=== PATIENT | male | born 1990 | race African-American/Black ===

== ENCOUNTER → 2017-09-15 | Outpatient (CLI) | payer OTHER ==
[2017-09-15 16:11] LABS: ANION GAP 16.3 mmol/L (8-16); BLOOD UREA NITROGEN 6 mg/dL (7-26); BUN/CREATININE RATIO 10 (6-25); CALCIUM 9.4 mg/dL (8.4-10.2); CARBON DIOXIDE 22 mmol/L (22-29); CHLORIDE 102 mmol/L (98-107); CREATININE, SERUM 0.58 mg/dL (0.72-1.25); EST GLOMERULAR FILTRATION RATE > 60 ML/MIN (60-); POTASSIUM 4.3 mmol/L (3.5-5.1); SODIUM 136 mmol/L (136-145)
[2017-09-15 16:13] LABS: GLUCOSE 52 mg/dL (74-118)
[2017-09-15 16:16] LABS: BASOPHILS % 0.5 % (0.0-1.0); EOSINOPHILS # (AUTO) 0.2 (0.0-0.4); EOSINOPHILS % 3.6 % (0.0-6.0); HEMOGLOBIN 9.2 g/dL (14.0-18.0); LYMPHOCYTES # (AUTO) 2.3 (1.0-3.2); LYMPHOCYTES % 41.9 % (18.0-39.1); MEAN CORPUSCULAR HEMOGLOBIN 22.5 pg (28-32); MEAN CORPUSCULAR HGB CONC 31.7 g/dL (31-35); MEAN CORPUSCULAR VOLUME 70.9 fL (81-99); MONOCYTES # (AUTO) 0.7 (0.2-0.8); MONOCYTES % 12.2 % (4.4-11.3); NEUTROPHILS # (AUTO) 2.3 (2.1-6.9); NEUTROPHILS % 41.4 % (38.7-80.0); PLATELET COUNT 491 x10e3/uL (140-360); RED BLOOD COUNT 4.09 x10e6/uL (4.3-5.7)
== END ==
LOC: NPA 12:40
DX: Z02.89 Encounter for other administrative examinations (principal)
CPT/HCPCS: 36415; 80048; 85025

== ENCOUNTER 2017-10-05 20:02 | Inpatient (IN) | payer OTHER ==
[~2017-10-05] VITALS: Ht 162.6 cm; Wt 48.5 kg
[2017-10-05] MEDS ORDERED: SODIUM CHLORIDE 0.9% 1000ML 1,000 ML IV STA (20:11)
[2017-10-05] MEDS ORDERED: PANTOPRAZOLE 40 MG 10ML VIAL IV STA (20:11)
[2017-10-05 20:25] LABS: BASOPHILS # (AUTO) 0.1 (0.0-0.1); BASOPHILS % 0.3 % (0.0-1.0); EOSINOPHILS % 0.2 % (0.0-6.0); HEMOGLOBIN 8.8 g/dL (14.0-18.0); LYMPHOCYTES # (AUTO) 1.2 (1.0-3.2); LYMPHOCYTES % 6.3 % (18.0-39.1); MEAN CORPUSCULAR HEMOGLOBIN 21.9 pg (28-32); MEAN CORPUSCULAR HGB CONC 32.6 g/dL (31-35); MEAN CORPUSCULAR VOLUME 67.2 fL (81-99); MONOCYTES # (AUTO) 1.3 (0.2-0.8); MONOCYTES % 6.8 % (4.4-11.3); NEUTROPHILS # (AUTO) 16.9 (2.1-6.9); NEUTROPHILS % 85.8 % (38.7-80.0); PLATELET COUNT 488 x10e3/uL (140-360); RED BLOOD COUNT 4.02 x10e6/uL (4.3-5.7); RED CELL DISTRIBUTION WIDTH 18.7 % (11.7-14.4)
[2017-10-05 20:36] LABS: INR 1.42; PROTHROMBIN TIME 16.3 seconds (11.9-14.5)
[2017-10-05 20:37] LABS: PARTIAL THROMBOPLASTIN TIME 34.5 seconds (23.8-35.5)
[2017-10-05 20:39] LABS: BILIRUBIN,URINE NEGATIVE (NEGATIVE); CLARITY,URINE SL CLOUDY (CLEAR); COLOR,URINE YELLOW (YELLOW); KETONES,URINE 1+ (NEGATIVE); LEUKOCYTE ESTERASE ,URINE NEGATIVE (NEGATIVE); NITRITE,URINE NEGATIVE (NEGATIVE); PROTEIN,URINE DIPSTICK NEGATIVE (NEGATIVE); URINE UROBILINOGEN 8 mg/dL (0.2 - 1)
[2017-10-05] MEDS ORDERED: VANCOMYCIN 1GM/NS 250 ML 250 ML IV STA (20:39)
[2017-10-05 20:45] LABS: ALBUMIN/GLOBULIN RATIO 0.3 (0.8-2.0); ALKALINE PHOSPHATASE 83 IU/L (40-150); ANION GAP 16.4 mmol/L (8-16); BLOOD UREA NITROGEN 7 mg/dL (7-26); BUN/CREATININE RATIO 13 (6-25); CALCIUM 8.9 mg/dL (8.4-10.2); CARBON DIOXIDE 24 mmol/L (22-29); CHLORIDE 96 mmol/L (98-107); CREATINE KINASE 28 IU/L (30-200); CREATININE, SERUM 0.54 mg/dL (0.72-1.25); EST GLOMERULAR FILTRATION RATE > 60 ML/MIN (60-); GLUCOSE 105 mg/dL (74-118); LIPASE 67 U/L (8-78); MAGNESIUM 1.2 MG/DL (1.3-2.1); POTASSIUM 3.4 mmol/L (3.5-5.1); SODIUM 133 mmol/L (136-145)
[2017-10-05 20:49] LABS: ALANINE AMINOTRANSFERASE < 6 IU/L (0-55)
[2017-10-05 20:51] LABS: B-TYPE NATRIURETIC PEPTIDE2 17.4 pg/mL (0-100)
[2017-10-05 20:58] LABS: BACTERIA,URINE FEW /HPF
[2017-10-05] MEDS ORDERED: LEVOFLOXACIN 500MG/D5W 100ML 100 ML IV SCH (21:00)
[2017-10-05] MEDS: CLINDAMYCIN PHOS 900MG/ D5W 50 50 ML IV SCH (21:29)
[2017-10-05 21:31] LABS: BAND NEUTROPHILS % (MANUAL) 1 %; HYPOCHROMASIA SLIGHT; LYMPHOCYTES % (MANUAL) 4 % (19-48); MONOCYTES % (MANUAL) 8 % (3.4-9.0); NEUTROPHILS % (MANUAL) 87 % (40-74); PLATELET ESTIMATE SLIGHTLY INCREASED; PLATELET MORPHOLOGY COMMENT NORMAL; RBC MORPHOLOGY COMMENT NORMAL
--- NOTE | 2017-10-05 21:34 | Diagnostic Imaging Report ---
EXAMINATION: CHEST SINGLE (PORTABLE) INDICATION: Increased secretion, shortness of breath, pneumonia COMPARISON: None FINDINGS: TUBES and LINES: Tracheostomy tube in good position. LUNGS: Lungs are well inflated. Right lower lobe airspace opacity with air bronchogram. Scattered areas of tree-in-bud opacities in the left lung base. PLEURA: Trace of right pleural effusion. HEART AND MEDIASTINUM: The cardiomediastinal silhouette is unremarkable. BONES AND SOFT TISSUES: No acute osseous lesion. Soft tissues are unremarkable. UPPER ABDOMEN: No free air under the diaphragm. IMPRESSION: Findings are compatible with aspiration versus pneumonia of the right lower lobe with associated small effusion. Signed by: Dr. Hector Collins M.D. on 10/05/2017 9:31 PM
[2017-10-05] MEDS ORDERED: MAGNESIUM SULFATE 2GM/50ML 50 ML IV ONE (21:45)
[2017-10-05] MEDS ORDERED: IPRATROPIUM BROMIDE 0.02% 2.5 ML NEB NEB SCH (22:00)
[2017-10-05] MEDS: IPRATROPIUM BROMIDE 0.02% 2.5 ML NEB NEB SCH (22:50)
[2017-10-05] MEDS: ALBUTEROL SULF 0.083% NEB SOLN 3 ML NEB NEB SCH (22:50)
[2017-10-05] MEDS: D5.45%NS/KCL 20MEQ 1,000 ML IV SCH (23:13)
[2017-10-06] VITALS (7 sets, daily range): BP systolic 107–139; BP diastolic 67–82
[2017-10-06] MEDS: D5.45%NS/KCL 20MEQ 1,000 ML IV SCH ×3 (00:15→12:55)
[2017-10-06] MEDS: CEFEPIME HCL 2 GM VIAL IV SCH ×3 (00:20→15:23)
[2017-10-06] MEDS: CLINDAMYCIN PHOS 900MG/ D5W 50 50 ML IV SCH ×3 (00:20→15:22)
[2017-10-06] MEDS ORDERED: TYLENOL WITH C1 EACH PO (05:12)
[2017-10-06] MEDS ORDERED: BACLOFEN10 MG PO (05:12)
[2017-10-06] MEDS ORDERED: DIPHENHYDRAMINE25 M1 PO (05:14)
[2017-10-06] MEDS ORDERED: DOLUTEGRAVIR PO (05:15)
[2017-10-06] MEDS ORDERED: GABAPENTIN100 MG PO (05:18)
[2017-10-06] MEDS ORDERED: TRUVADA 200 MG1 EACH PO (05:18)
[2017-10-06] MEDS ORDERED: LEVAQUIN500 MG IV (05:19)
[2017-10-06] MEDS ORDERED: GLYCOPYRROLATE1 MG PO (05:19)
[2017-10-06] MEDS ORDERED: PANTOPRAZOLE SO40 MG PO (05:20)
[2017-10-06] MEDS ORDERED: MIDODRINE HCL2.5 MG PO (05:20)
[2017-10-06] MEDS ORDERED: MELATONIN3 MG PO (05:20)
[2017-10-06] MEDS ORDERED: POLYETHYLENE GL17 GM PO (05:21)
[2017-10-06] MEDS ORDERED: SERTRALINE HCL100 MG PO (05:22)
[2017-10-06] MEDS ORDERED: SEROQUEL25 MG PO (05:22)
[2017-10-06] MEDS ORDERED: XANAX0.5 MG PO (05:23)
[2017-10-06] MEDS ORDERED: TRAZODONE HCL100 MG PO (05:23)
[2017-10-06] MEDS ORDERED: ZOFRAN ODT4 MG PO (05:24)
[2017-10-06 05:49] LABS: BASOPHILS # (AUTO) 0.1 (0.0-0.1); BASOPHILS % 0.4 % (0.0-1.0); HEMATOCRIT 23.4 % (38.2-49.6); LYMPHOCYTES # (AUTO) 1.3 (1.0-3.2); LYMPHOCYTES % 7.6 % (18.0-39.1); MEAN CORPUSCULAR HEMOGLOBIN 22.2 pg (28-32); MEAN CORPUSCULAR HGB CONC 33.8 g/dL (31-35); MEAN CORPUSCULAR VOLUME 65.7 fL (81-99); MONOCYTES # (AUTO) 0.8 (0.2-0.8); MONOCYTES % 4.4 % (4.4-11.3); NEUTROPHILS # (AUTO) 14.7 (2.1-6.9); NEUTROPHILS % 86.8 % (38.7-80.0); PLATELET COUNT 436 x10e3/uL (140-360); RED BLOOD COUNT 3.56 x10e6/uL (4.3-5.7); RED CELL DISTRIBUTION WIDTH 18.6 % (11.7-14.4)
[2017-10-06 05:52] LABS: HEMOGLOBIN 7.9 g/dL (14.0-18.0)
[2017-10-06 06:03] LABS: ALBUMIN 1.8 g/dL (3.5-5.0); ALBUMIN/GLOBULIN RATIO 0.3 (0.8-2.0); ALKALINE PHOSPHATASE 81 IU/L (40-150); ANION GAP 11.4 mmol/L (8-16); BLOOD UREA NITROGEN 5 mg/dL (7-26); BUN/CREATININE RATIO 10 (6-25); CALCIUM 8.2 mg/dL (8.4-10.2); CARBON DIOXIDE 23 mmol/L (22-29); CHLORIDE 99 mmol/L (98-107); CREATINE KINASE 97 IU/L (30-200); CREATININE, SERUM 0.48 mg/dL (0.72-1.25); EST GLOMERULAR FILTRATION RATE > 60 ML/MIN (60-); GLUCOSE 146 mg/dL (74-118); POTASSIUM 3.4 mmol/L (3.5-5.1); SODIUM 130 mmol/L (136-145)
[2017-10-06 06:05] LABS: ALANINE AMINOTRANSFERASE < 6 IU/L (0-55)
--- NOTE | 2017-10-06 07:54 | Diagnostic Imaging Report ---
PROCEDURE: A single AP view of the chest. COMPARISON: Patients [facility], DX, CHEST SINGLE (PORTABLE), 10/05/2017, 20:28. INDICATIONS: TRACHEOSTOMY, VENT. PNEUMONIA FINDINGS: Lines/tubes: Tracheostomy tube again noted. Partially visualized cervical spine hardware. Lungs: Unchanged right lower lobe airspace opacity. Vague opacity in the left lower lobe also present. Findings may be secondary to aspiration. Pleura: There is no pleural effusion or pneumothorax. Heart and mediastinum: The heart and the mediastinum are unremarkable. Bones: No acute bony abnormality. IMPRESSION: Bilateral lower lobe airspace opacities. Jered Morris D.O. Dictated by: Jered Morris D.O. on 10/06/2017 at 7:54 Electronically approved by: Jered Morris D.O. on 10/06/2017 at 7:54
[2017-10-06] MEDS ORDERED: LEVOFLOXACIN 750MG/D5W 150ML 150 ML IV SCH (09:00)
[2017-10-06] MEDS: PANTOPRAZOLE 40 MG 10ML VIAL IV SCH ×2 (09:45→17:33)
[2017-10-06] MEDS: ENOXAPARIN SOD INJ 40 MG/0.4 ML SYR SC SCH (09:45)
[2017-10-06] MEDS: VANCOMYCIN 1GM/NS 250 ML 250 ML IV SCH ×2 (09:45→20:59)
[2017-10-06] MEDS ORDERED: SODIUM CHLORIDE 0.9% 500ML 1,000 ML ONE (13:14)
[2017-10-06] MEDS ORDERED: LIDOCAINE HCL 2% LOCAL 20 ML VIAL ONE (13:14)
[2017-10-06] MEDS: ALBUTEROL SULF 0.083% NEB SOLN 3 ML NEB NEB SCH ×2 (15:00→19:00)
[2017-10-06] MEDS: IPRATROPIUM BROMIDE 0.02% 2.5 ML NEB NEB SCH ×2 (15:00→19:00)
[2017-10-06 15:22] LABS: BASOPHILS % 0.2 % (0.0-1.0); EOSINOPHILS % 0.2 % (0.0-6.0); LYMPHOCYTES # (AUTO) 1.2 (1.0-3.2); LYMPHOCYTES % 9.4 % (18.0-39.1); MEAN CORPUSCULAR HEMOGLOBIN 21.9 pg (28-32); MEAN CORPUSCULAR HGB CONC 33.5 g/dL (31-35); MEAN CORPUSCULAR VOLUME 65.5 fL (81-99); MONOCYTES # (AUTO) 0.6 (0.2-0.8); MONOCYTES % 4.5 % (4.4-11.3); NEUTROPHILS # (AUTO) 10.6 (2.1-6.9); PLATELET COUNT 504 x10e3/uL (140-360); RED BLOOD COUNT 3.33 x10e6/uL (4.3-5.7); RED CELL DISTRIBUTION WIDTH 18.5 % (11.7-14.4)
[2017-10-06 15:25] LABS: HEMOGLOBIN 7.3 g/dL (14.0-18.0)
[2017-10-06 15:26] LABS: HEMATOCRIT 21.8 % (38.2-49.6)
--- NOTE | 2017-10-06 15:41 | Diagnostic Imaging Report ---
PROCEDURE:X-RAY PELVIS, AP VIEW COMPARISON:None. INDICATIONS:FEMORAL CENTRAL LINE PLACEMENT FINDINGS: See impression. CONCLUSION: 1. Right-sided femoral line in place, with distal tip projecting at the level of the L5 vertebral body. 2. Nonobstructive bowel gas pattern. 3. No acute bony abnormalities. Prashant Alberto M.D. Dictated by: Prashant Alberto M.D. on 10/06/2017 at 15:41 Electronically approved by: Prashant Alberto M.D. on 10/06/2017 at 15:41
[2017-10-06 15:44] LABS: CREATINE KINASE MB 0.6 ng/mL (0-5.0)
[2017-10-06] MEDS ORDERED: SODIUM CHLORIDE 0.9% 250ML 250 ML ONE (15:45)
[2017-10-06] MEDS ORDERED: SODIUM CHLORIDE 0.9% 250ML 250 ML IV ONE (16:00)
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
[2017-10-06] MEDS ORDERED: ACETAMINOPHEN 1000 MG/100 ML 100 ML IV ONE (21:54)
[2017-10-06] MEDS ORDERED: ACETAMINOPHEN 1000 MG/100 ML IV STA (21:57)
[2017-10-07] VITALS (48 sets, daily range): BP systolic 102–160; BP diastolic 63–98
[2017-10-07] MEDS: ACETAMINOPHEN 1000 MG/100 ML IV PRN (04:32)
[2017-10-07] MEDS: CLINDAMYCIN PHOS 900MG/ D5W 50 50 ML IV SCH (05:30)
[2017-10-07] MEDS: CEFEPIME HCL 2 GM VIAL IV SCH ×3 (05:30→21:04)
[2017-10-07 05:53] LABS: BASOPHILS % 0.1 % (0.0-1.0); EOSINOPHILS % 0.1 % (0.0-6.0); HEMATOCRIT 29.3 % (38.2-49.6); HEMOGLOBIN 9.8 g/dL (14.0-18.0); LYMPHOCYTES # (AUTO) 0.7 (1.0-3.2); LYMPHOCYTES % 4.5 % (18.0-39.1); MEAN CORPUSCULAR HEMOGLOBIN 23.4 pg (28-32); MEAN CORPUSCULAR HGB CONC 33.4 g/dL (31-35); MEAN CORPUSCULAR VOLUME 69.9 fL (81-99); MONOCYTES # (AUTO) 0.9 (0.2-0.8); NEUTROPHILS # (AUTO) 13.4 (2.1-6.9); NEUTROPHILS % 88.7 % (38.7-80.0); PLATELET COUNT 390 x10e3/uL (140-360); RED BLOOD COUNT 4.19 x10e6/uL (4.3-5.7); RED CELL DISTRIBUTION WIDTH 18.9 % (11.7-14.4)
[2017-10-07 06:19] LABS: ALBUMIN 1.6 g/dL (3.5-5.0); ALBUMIN/GLOBULIN RATIO 0.3 (0.8-2.0); ALKALINE PHOSPHATASE 82 IU/L (40-150); ANION GAP 9.5 mmol/L (8-16); BLOOD UREA NITROGEN 5 mg/dL (7-26); BUN/CREATININE RATIO 12 (6-25); CALCIUM 7.2 mg/dL (8.4-10.2); CARBON DIOXIDE 22 mmol/L (22-29); CHLORIDE 102 mmol/L (98-107); CREATININE, SERUM 0.43 mg/dL (0.72-1.25); EST GLOMERULAR FILTRATION RATE > 60 ML/MIN (60-); GLUCOSE 133 mg/dL (74-118); MAGNESIUM 1.5 MG/DL (1.3-2.1); POTASSIUM 3.5 mmol/L (3.5-5.1); SODIUM 130 mmol/L (136-145)
[2017-10-07 06:24] LABS: ALANINE AMINOTRANSFERASE < 6 IU/L (0-55)
[2017-10-07] MEDS: IPRATROPIUM BROMIDE 0.02% 2.5 ML NEB NEB SCH ×5 (06:30→23:00)
[2017-10-07] MEDS: ALBUTEROL SULF 0.083% NEB SOLN 3 ML NEB NEB SCH ×5 (06:30→23:00)
[2017-10-07] MEDS: D5.45%NS/KCL 20MEQ 1,000 ML IV SCH ×3 (06:40→21:04)
--- NOTE | 2017-10-07 06:56 | Diagnostic Imaging Report ---
EXAMINATION: CHEST SINGLE (PORTABLE) INDICATION: Pneumonia, ventilator COMPARISON: 10/06/2017 FINDINGS: TUBES and LINES: Tracheostomy tube in good position. LUNGS: Lungs are well inflated. Persistent right lower lobe airspace opacity with air bronchogram. Scattered areas of tree-in-bud opacities in the left lung base. PLEURA: Trace of right pleural effusion. HEART AND MEDIASTINUM: The cardiomediastinal silhouette is unremarkable. BONES AND SOFT TISSUES: No acute osseous lesion. Soft tissues are unremarkable. UPPER ABDOMEN: No free air under the diaphragm. IMPRESSION: Findings are compatible with stable aspiration versus pneumonia of the right lower lobe with associated small effusion. Signed by: Dr. Hector Collins M.D. on 10/07/2017 6:53 AM
[2017-10-07] MEDS: ENOXAPARIN SOD INJ 40 MG/0.4 ML SYR SC SCH (09:18)
[2017-10-07] MEDS: PANTOPRAZOLE 40 MG 10ML VIAL IV SCH ×2 (09:18→17:29)
[2017-10-07] MEDS: VANCOMYCIN 1GM/NS 250 ML 250 ML IV SCH ×2 (09:42→21:04)
--- NOTE | 2017-10-07 15:06 | Diagnostic Imaging Report ---
PROCEDURE:X-RAY MODIFIED BARIUM SWALLOW COMPARISON:None. INDICATIONS:Pneumonia. Concern for aspiration. DISCUSSION:Fluoroscopic examination was performed in conjunction with speech pathology, during swallowing of a variety of thin and thick liquid consistencies. CONCLUSION:No penetration or aspiration with consistencies tested. Please see the report from speech pathology for complete details and recommendations. Henry Manuel M.D. Dictated by: Henry Manuel M.D. on 10/07/2017 at 15:06 Electronically approved by: Henry Manuel M.D. on 10/07/2017 at 15:06
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
[2017-10-08] VITALS (44 sets, daily range): BP systolic 97–150; BP diastolic 60–102
[2017-10-08] MEDS: ACETAMINOPHEN 1000 MG/100 ML IV PRN (03:00)
[2017-10-08] MEDS: IPRATROPIUM BROMIDE 0.02% 2.5 ML NEB NEB SCH ×4 (03:00→15:00)
[2017-10-08] MEDS: ALBUTEROL SULF 0.083% NEB SOLN 3 ML NEB NEB SCH ×4 (03:00→15:00)
[2017-10-08] MEDS: CEFEPIME HCL 2 GM VIAL IV SCH (05:36)
[2017-10-08] MEDS: D5.45%NS/KCL 20MEQ 1,000 ML IV SCH ×3 (05:36→20:48)
[2017-10-08 06:10] LABS: BASOPHILS % 0.2 % (0.0-1.0); EOSINOPHILS % 0.3 % (0.0-6.0); HEMATOCRIT 27.9 % (38.2-49.6); HEMOGLOBIN 9.4 g/dL (14.0-18.0); LYMPHOCYTES # (AUTO) 1.4 (1.0-3.2); LYMPHOCYTES % 11.6 % (18.0-39.1); MEAN CORPUSCULAR HEMOGLOBIN 23.3 pg (28-32); MEAN CORPUSCULAR HGB CONC 33.7 g/dL (31-35); MEAN CORPUSCULAR VOLUME 69.2 fL (81-99); MONOCYTES # (AUTO) 0.7 (0.2-0.8); MONOCYTES % 5.6 % (4.4-11.3); NEUTROPHILS # (AUTO) 9.7 (2.1-6.9); NEUTROPHILS % 81.7 % (38.7-80.0); PLATELET COUNT 418 x10e3/uL (140-360); RED BLOOD COUNT 4.03 x10e6/uL (4.3-5.7); RED CELL DISTRIBUTION WIDTH 19.3 % (11.7-14.4)
[2017-10-08 06:34] LABS: INR 1.73
[2017-10-08 06:53] LABS: ALBUMIN 1.6 g/dL (3.5-5.0); ALBUMIN/GLOBULIN RATIO 0.3 (0.8-2.0); ALKALINE PHOSPHATASE 87 IU/L (40-150); ANION GAP 10.6 mmol/L (8-16); BLOOD UREA NITROGEN < 5 mg/dL (7-26); CALCIUM 7.9 mg/dL (8.4-10.2); CARBON DIOXIDE 19 mmol/L (22-29); CHLORIDE 103 mmol/L (98-107); CREATININE, SERUM 0.45 mg/dL (0.72-1.25); EST GLOMERULAR FILTRATION RATE > 60 ML/MIN (60-); GLUCOSE 99 mg/dL (74-118); POTASSIUM 3.6 mmol/L (3.5-5.1); SODIUM 129 mmol/L (136-145)
[2017-10-08 06:56] LABS: ALANINE AMINOTRANSFERASE < 6 IU/L (0-55); BUN/CREATININE RATIO 11 (6-25)
[2017-10-08] MEDS: PANTOPRAZOLE 40 MG 10ML VIAL IV SCH ×2 (08:14→17:00)
[2017-10-08] MEDS: ENOXAPARIN SOD INJ 40 MG/0.4 ML SYR SC SCH (08:14)
--- NOTE | 2017-10-08 08:38 | Diagnostic Imaging Report ---
PROCEDURE:CHEST SINGLE (PORTABLE) TECHNIQUE:Portable AP chest INDICATION:Pneumonia; ventilator COMPARISON:Patients [facility], DX, CHEST SINGLE (PORTABLE), 10/07/2017, 5:34. FINDINGS: See conclusion. CONCLUSION: 1. Indwelling tracheostomy. Tip 8 cm from the keith. 2. Unchanged bilateral lower lobe airspace opacities consistent with pneumonia. No cavitation. 3. Trace pleural effusions. 4. Normal heart size and central vasculature. 5. Stomach enteric contrast from recent swallow study. Dictated by: Ramesh Mann M.D. on 10/08/2017 at 8:39 Electronically approved by: Ramesh Mann M.D. on 10/08/2017 at 8:39
[2017-10-08] MEDS: MEROPENEM 500 MG VIAL IV SCH ×3 (09:14→20:48)
[2017-10-08] MEDS: VANCOMYCIN 1GM/NS 250 ML 250 ML IV SCH ×2 (09:14→20:48)
[2017-10-08] MEDS ORDERED: MEROPENEM 500MG 500 MG in SODIUM CHLORIDE 0.9% 50ML 50 ML IV SCH (12:00)
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
[2017-10-09] VITALS (15 sets, daily range): BP systolic 114–134; BP diastolic 74–93
[2017-10-09] MEDS: MEROPENEM 500 MG VIAL IV SCH ×2 (03:45→08:45)
[2017-10-09] MEDS: D5.45%NS/KCL 20MEQ 1,000 ML IV SCH (05:07)
[2017-10-09 06:12] LABS: BASOPHILS % 0.4 % (0.0-1.0); EOSINOPHILS # (AUTO) 0.1 (0.0-0.4); EOSINOPHILS % 1.4 % (0.0-6.0); HEMATOCRIT 28.9 % (38.2-49.6); HEMOGLOBIN 9.8 g/dL (14.0-18.0); LYMPHOCYTES # (AUTO) 1.3 (1.0-3.2); LYMPHOCYTES % 14.6 % (18.0-39.1); MEAN CORPUSCULAR HEMOGLOBIN 23.4 pg (28-32); MEAN CORPUSCULAR HGB CONC 33.9 g/dL (31-35); MEAN CORPUSCULAR VOLUME 69.1 fL (81-99); MONOCYTES # (AUTO) 0.7 (0.2-0.8); MONOCYTES % 7.5 % (4.4-11.3); NEUTROPHILS # (AUTO) 6.8 (2.1-6.9); NEUTROPHILS % 74.7 % (38.7-80.0); PLATELET COUNT 424 x10e3/uL (140-360); RED BLOOD COUNT 4.18 x10e6/uL (4.3-5.7); RED CELL DISTRIBUTION WIDTH 20.6 % (11.7-14.4)
[2017-10-09 06:33] LABS: ALBUMIN 1.6 g/dL (3.5-5.0); ALBUMIN/GLOBULIN RATIO 0.3 (0.8-2.0); ALKALINE PHOSPHATASE 87 IU/L (40-150); ANION GAP 10.7 mmol/L (8-16); BLOOD UREA NITROGEN < 5 mg/dL (7-26); CALCIUM 7.8 mg/dL (8.4-10.2); CARBON DIOXIDE 18 mmol/L (22-29); CHLORIDE 107 mmol/L (98-107); CREATININE, SERUM 0.44 mg/dL (0.72-1.25); EST GLOMERULAR FILTRATION RATE > 60 ML/MIN (60-); GLUCOSE 91 mg/dL (74-118); MAGNESIUM 1.4 MG/DL (1.3-2.1); POTASSIUM 3.7 mmol/L (3.5-5.1); SODIUM 132 mmol/L (136-145)
[2017-10-09 06:34] LABS: ALANINE AMINOTRANSFERASE < 6 IU/L (0-55); BUN/CREATININE RATIO 11 (6-25)
[2017-10-09] MEDS: PANTOPRAZOLE 40 MG 10ML VIAL IV SCH (08:45)
[2017-10-09] MEDS ORDERED: DOLUTEGRAVIR 50 MG PO SCH (09:00)
[2017-10-09] MEDS ORDERED: TENOFOVIR PO SCH (09:00)
[2017-10-09] MEDS ORDERED: EMTRICITABINE PO SCH (09:00)
== END 2017-10-09 14:24 | DRG 974 ==
LOC: ER 20:02 → ERHOLD 22:48 → EDBEDREQ 10-06 20:43 → EDBEDREQTM 10-06 20:43 → ICU 10-06 21:45
PROC: 5A1945Z Respiratory Ventilation, 24-96 Consecutive Hours (ICD-10-PCS; principal; 2017-10-05)
PROC: 30233N1 Transfusion of Nonautologous Red Blood Cells into Peripheral Vein, Percutaneous Approach (ICD-10-PCS; 2017-10-06)
DX: A41.9 Sepsis, unspecified organism (principal); J96.20 Acute and chronic respiratory failure, unspecified whether with hypoxia or hypercapnia; B20 Human immunodeficiency virus [HIV] disease; J69.0 Pneumonitis due to inhalation of food and vomit; G82.50 Quadriplegia, unspecified; Z99.11 Dependence on respirator [ventilator] status; E46 Unspecified protein-calorie malnutrition; S14.109S Unspecified injury at unspecified level of cervical spinal cord, sequela; V89.2XXS Person injured in unspecified motor-vehicle accident, traffic, sequela; F20.9 Schizophrenia, unspecified; M24.50 Contracture, unspecified joint; B96.5 Pseudomonas (aeruginosa) (mallei) (pseudomallei) as the cause of diseases classified elsewhere
CPT/HCPCS: 36010; 36415; 36430; 51700; 71045; 72170; 74230; 74470; 76942; 80053; 80202; 81001; 82550; 82553; 82948; 83605; 83690; 83735; 83880; 84484; 85025; 85610; 85730; 86361; 86850; 86900; 86920; 87040; 87070; 87071; 87086; 87186; 87205; 93005; 94002; 94003; 94640; 99285; C1751; C1769; J0692; J1650; J1956; J2001; J2185; J3370; J7030; J7040; J7050; P9016